=== PATIENT | male | born 1965 | race Caucasian/White ===

== ENCOUNTER 2017-06-04 18:03 | Observation (INO) ==
[2017-06-04] MEDS ORDERED: LORazepam 2 MG/1 ML VIAL ONE (18:13)
[2017-06-04] MEDS ORDERED: LORazepam 2 MG/1 ML VIAL IV STA ×2 (18:14→18:44)
[2017-06-04] MEDS ORDERED: DIPH/TET/ACEL PERT BOOSTER VACCINE 0.5 ML VIAL IM ONE ×2 (18:14→18:18)
[2017-06-04] MEDS ORDERED: ceFAZolin 1,000 MG VIAL ONE (18:18)
[2017-06-04 18:25] LABS: Basophils % 0.4 % (0.0-0.8); Eosinophils # 0.1 10*3/uL (0.0-0.87); Hematocrit 39.3 VOL% (42.0-52.0); Hemoglobin 13.6 GM/DL (14.0-18.0); Immature Granulocytes % 0.4 %; Immature Granulocytes Absolute 0.04 #; Lymphocytes # 1.3 10*3/uL (1.4-4.0); Lymphocytes % 14.6 % (21.2-54.2); Mean Corpuscular HGB Conc 34.6 GM/DL (32-36); Mean Corpuscular Hemoglobin 30 PG (27-34); Mean Corpuscular Volume 87.9 FL (87-102); Mean Platelet Volume 9.6 FL (9.6-12.0); Monocytes # 0.6 10*3/uL (0.11-0.8); Monocytes % 7.1 % (1.7-12.7); Neutrophils # 6.9 10*3/uL (1.4-7.4); Neutrophils % 76.5 % (38.7-73.9); Platelet Count 322 T/CUMM (130-400); Red Blood Count 4.47 MC/CUMM (3.8-5.5)
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
[2017-06-04 18:41] LABS: INR 1.1; PT Patient Result 11.7 SECS
[2017-06-04 18:46] LABS: Alanine Aminotransferase 18 U/L (16-61); Alkaline Phosphatase 96 U/L (45-117); Amylase 27 U/L (25-115); Aspartate Amino Transferase 13 U/L (0-37); Blood Urea Nitrogen 17 MG/DL (7-18); Calcium 9.8 MG/DL (8.5-10.1); Glucose 118 MG/DL (74-106); Osmolality,Calculated 283.3 MOS/KG (273-304); Potassium 3.7 MMOL/L (3.5-5.1); Sodium 141 MMOL/L (136-145); Total Protein 7.3 G/DL (6.4-8.3)
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
[2017-06-04] MEDS ORDERED: ONDANSETRON 4 MG/2 ML VIAL IV PRN (20:33)
[2017-06-04] MEDS ORDERED: ACETAMINOPHEN 325 MG TABLET PO PRN (20:33)
[2017-06-04] MEDS ORDERED: MORPHINE 2 MG/1 ML SYRINGE IV PRN (20:33)
[2017-06-04] MEDS: LACTATED RINGERS 1,000 ML IV SCH ×2 (21:10→21:21)
[2017-06-04] MEDS: clonazePAM 0.5 MG TABLET PO SCH (21:20)
[2017-06-04] MEDS: LITHIUM 300 MG CAPSULE PO SCH (21:20)
[2017-06-04] MEDS: QUEtiapine 100 MG TABLET PO SCH (21:21)
[2017-06-04] MEDS: BENZTROPINE 1 MG TABLET PO SCH (21:21)
[2017-06-05] MEDS: LACTATED RINGERS 1,000 ML IV SCH (04:15)
[2017-06-05] MEDS ORDERED: LEVOTHYROXINE 50 MCG TABLET PO SCH (07:00)
[2017-06-05 08:56] LABS: Basophils % 0.4 % (0.0-0.8); Eosinophils # 0.1 10*3/uL (0.0-0.87); Eosinophils % 1.8 % (0.00-10.9); Hematocrit 39.1 VOL% (42.0-52.0); Hemoglobin 13.1 GM/DL (14.0-18.0); Immature Granulocytes % 0.4 %; Immature Granulocytes Absolute 0.03 #; Lymphocytes # 1.1 10*3/uL (1.4-4.0); Lymphocytes % 14.4 % (21.2-54.2); Mean Corpuscular HGB Conc 33.5 GM/DL (32-36); Mean Corpuscular Hemoglobin 30 PG (27-34); Mean Corpuscular Volume 89.5 FL (87-102); Mean Platelet Volume 9.4 FL (9.6-12.0); Monocytes # 0.7 10*3/uL (0.11-0.8); Monocytes % 8.5 % (1.7-12.7); Neutrophils # 5.9 10*3/uL (1.4-7.4); Neutrophils % 74.5 % (38.7-73.9); Platelet Count 308 T/CUMM (130-400); Red Blood Count 4.37 MC/CUMM (3.8-5.5); Red Cell Distribution Width 12.9 % (9.3-17.3); White Blood Count 7.9 T/CUMM (4-12)
[2017-06-05 09:00] LABS: Calcium 9.1 MG/DL (8.5-10.1); Magnesium 2.6 MG/DL (1.8-2.4); Osmolality,Calculated 281.3 MOS/KG (273-304); Potassium 4.3 MMOL/L (3.5-5.1)
[2017-06-05] MEDS ORDERED: PANTOPRAZOLE 40 MG TABLET PO SCH (09:00)
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
[2017-06-05] MEDS: clonazePAM 0.5 MG TABLET PO SCH (09:12)
[2017-06-05] MEDS: QUEtiapine 100 MG TABLET PO SCH (09:12)
[2017-06-05] MEDS: BENZTROPINE 1 MG TABLET PO SCH (09:13)
[2017-06-05] MEDS: LITHIUM 300 MG CAPSULE PO SCH (09:13)
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
[2017-06-05 11:38] VITALS: BP 104/63
[2017-06-05] MEDS ORDERED: ENOXAPARIN 40 MG/0.4 ML SYRINGE SUBCUT SCH (13:00)
== END 2017-06-05 11:34 ==
LOC: EDBD → EDUNIT# → N.ED 18:03 → N.EDINP 18:03 → N.CC 20:25
PROVIDERS: ADMIT Surgery; ATTEND Surgery

== ENCOUNTER 2017-08-16 22:15 | Inpatient (IN) ==
[2017-08-16] MEDS ORDERED: ceFAZolin 2,000 MG in PREMIX 1 EACH IV ONE (22:30)
[2017-08-16] MEDS ORDERED: ONDANSETRON 4 MG/2 ML VIAL IV PRN (22:31)
[2017-08-16] MEDS ORDERED: ACETAMINOPHEN 325 MG TABLET PO PRN (22:31)
[2017-08-16] MEDS ORDERED: HYDROmorphone 2 MG/1 ML VIAL IV PRN (22:31)
[2017-08-16 22:43] LABS: Basophils % 0.6 % (0.0-0.8); Eosinophils # 0.2 10*3/uL (0.0-0.87); Eosinophils % 2.4 % (0.00-10.9); Hemoglobin 12.9 GM/DL (14.0-18.0); Immature Granulocytes % 0.2 %; Immature Granulocytes Absolute 0.01 #; Lymphocytes # 1.8 10*3/uL (1.4-4.0); Lymphocytes % 28.8 % (21.2-54.2); Mean Corpuscular HGB Conc 33.9 GM/DL (32-36); Mean Corpuscular Hemoglobin 30 PG (27-34); Mean Corpuscular Volume 89.2 FL (87-102); Mean Platelet Volume 9.8 FL (9.6-12.0); Monocytes # 0.5 10*3/uL (0.11-0.8); Monocytes % 8.7 % (1.7-12.7); Neutrophils # 3.7 10*3/uL (1.4-7.4); Neutrophils % 59.3 % (38.7-73.9); Platelet Count 275 T/CUMM (130-400); Red Blood Count 4.26 MC/CUMM (3.8-5.5); Red Cell Distribution Width 13.6 % (9.3-17.3); White Blood Count 6.2 T/CUMM (4-12)
[2017-08-16] MEDS ORDERED: ceFAZolin 1,000 MG VIAL ONE (22:43)
[2017-08-16 22:50] LABS: INR 1.1; PT Patient Result 11.8 SECS; Partial Thromboplastin Time 25.9 SECS (0-40)
[2017-08-16 22:55] LABS: Lactic Acid 2.9 MMOL/L (0.4-2.0)
[2017-08-16 22:56] LABS: Alanine Aminotransferase 17 U/L (16-61); Alkaline Phosphatase 52 U/L (45-117); Amylase 25 U/L (25-115); Aspartate Amino Transferase 17 U/L (0-37); Blood Urea Nitrogen 12 MG/DL (7-18); Calcium 9.2 MG/DL (8.5-10.1); Glucose 118 MG/DL (74-106); Osmolality,Calculated 279.4 MOS/KG (273-304); Potassium 4.1 MMOL/L (3.5-5.1); Sodium 140 MMOL/L (136-145); Total Protein 6.4 G/DL (6.4-8.3)
[2017-08-17] MEDS ORDERED: BACITRACIN OINT 0.9 GM PACK TOP ONE (00:01)
[2017-08-17] MEDS ORDERED: GLUCAGON 1 MG VIAL IM PRN (00:06)
[2017-08-17] MEDS ORDERED: DEXTROSE 50% 25 GM/50 ML VIAL IV PRN (00:06)
[2017-08-17] MEDS ORDERED: SEVOFLURANE 1 UNIT/15 MINUTE INH ONE (00:27)
[2017-08-17] MEDS ORDERED: PROPOFOL 200 MG/20 ML VIAL IV ONE (00:27)
[2017-08-17] MEDS ORDERED: MIDAZOLAM 2 MG/2 ML VIAL ONE (00:27)
[2017-08-17] MEDS ORDERED: fentaNYL 100 MCG/2 ML VIAL ONE (00:27)
[2017-08-17] MEDS ORDERED: ONDANSETRON 4 MG/2 ML VIAL ONE (00:28)
[2017-08-17] MEDS ORDERED: GLYCOPYRROLATE 0.4 MG/2 ML VIAL ONE (00:28)
[2017-08-17] MEDS ORDERED: SUCCINYLCHOLINE 200 MG/10 ML VIAL ONE (00:28)
[2017-08-17] MEDS ORDERED: ROCURONIUM 100 MG/10 ML VIAL IV ONE (00:28)
[2017-08-17] MEDS ORDERED: NEOSTIGMINE 10 MG/10 ML VIAL ONE (00:28)
[2017-08-17] MEDS: LACTATED RINGERS 1,000 ML IV SCH ×3 (01:16→17:46)
[2017-08-17] MEDS: KETOROLAC 15 MG/1 ML VIAL IV SCH ×4 (01:19→18:31)
[2017-08-17 03:24] LABS: Barbiturates Screen,Urine Negative (Negative); Benzodiazepines Screen,Urine Positive (Negative); Cannabinoid Screen,Urine Negative (Negative); Opiate Screen,Urine Negative (Negative); Phencyclidine Screen,Urine Negative (Negative)
[2017-08-17 03:28] LABS: Apearance,Urine CLEAR (Clear); Bilirubin,Urine Negative (Negative); Blood, Urine Large mg/dL (Negative); Glucose,Urine (UA) Negative (Negative); Ketones,Urine Negative (Negative); Nitrite,Urine Negative (Negative); Protein,Urine Negative; RBC,Urine 1436 /HPF (0-4); Urine Color Red (Yellow); Urine Urobilinogen < 2.0 EU/DL (0.2-1.0); WBC,Urine 7 /HPF (0-6)
[2017-08-17] MEDS: ceFAZolin 2,000 MG in PREMIX 1 EACH IV SCH ×3 (06:18→23:06)
[2017-08-17] MEDS: LEVOTHYROXINE 50 MCG TABLET PO SCH (06:19)
[2017-08-17] MEDS: traZODone 50 MG TABLET PO SCH ×2 (09:04→23:16)
[2017-08-17] MEDS: BENZTROPINE 1 MG TABLET PO SCH ×2 (09:04→23:16)
[2017-08-17] MEDS: clonazePAM 0.5 MG TABLET PO SCH ×3 (09:06→23:18)
[2017-08-17] MEDS: LITHIUM 300 MG CAPSULE PO SCH ×3 (09:07→23:19)
[2017-08-17] MEDS: QUEtiapine 100 MG TABLET PO SCH ×3 (09:07→23:19)
[2017-08-17] MEDS: PANTOPRAZOLE 40 MG VIAL IV SCH (09:08)
[2017-08-17 09:15] LABS: Basophils % 0.5 % (0.0-0.8); Eosinophils # 0.2 10*3/uL (0.0-0.87); Eosinophils % 2.4 % (0.00-10.9); Hematocrit 38.7 VOL% (42.0-52.0); Hemoglobin 12.9 GM/DL (14.0-18.0); Immature Granulocytes % 0.3 %; Immature Granulocytes Absolute 0.02 #; Lymphocytes # 1.8 10*3/uL (1.4-4.0); Lymphocytes % 29.1 % (21.2-54.2); Mean Corpuscular HGB Conc 33.3 GM/DL (32-36); Mean Corpuscular Hemoglobin 30 PG (27-34); Mean Corpuscular Volume 91.1 FL (87-102); Monocytes # 0.6 10*3/uL (0.11-0.8); Monocytes % 9.1 % (1.7-12.7); Neutrophils # 3.7 10*3/uL (1.4-7.4); Neutrophils % 58.6 % (38.7-73.9); Platelet Count 265 T/CUMM (130-400); Red Blood Count 4.25 MC/CUMM (3.8-5.5); Red Cell Distribution Width 13.8 % (9.3-17.3); White Blood Count 6.3 T/CUMM (4-12)
[2017-08-17] MEDS: HALOPERIDOL 5 MG TABLET PO SCH ×2 (09:22→23:17)
[2017-08-17 09:28] LABS: Albumin 3.4 G/DL (3.4-5.0); Bilirubin,Total 0.6 MG/DL (0.2-1.0); Calcium 8.5 MG/DL (8.5-10.1); Osmolality,Calculated 277.4 MOS/KG (273-304); Potassium 4.5 MMOL/L (3.5-5.1); Total Protein 5.9 G/DL (6.4-8.3)
[2017-08-17 10:01] LABS: Giant Platelets Few; Hypochromasia 1+; Ovalocytes Slight; Platelet Estimate Adequate
[2017-08-17] MEDS: INSULIN REGULAR 100 UNIT/ML SUBCUT SCH ×4 (12:45→21:22)
[2017-08-18] MEDS: LACTATED RINGERS 1,000 ML IV SCH ×4 (01:13→19:25)
[2017-08-18] MEDS: KETOROLAC 15 MG/1 ML VIAL IV SCH ×4 (01:14→21:14)
[2017-08-18] MEDS: BENZTROPINE 1 MG TABLET PO SCH ×3 (02:00→21:14)
[2017-08-18] MEDS: traZODone 50 MG TABLET PO SCH ×3 (02:01→21:13)
[2017-08-18] MEDS: LITHIUM 300 MG CAPSULE PO SCH ×4 (02:01→21:14)
[2017-08-18] MEDS: QUEtiapine 100 MG TABLET PO SCH ×4 (02:01→21:14)
[2017-08-18] MEDS: clonazePAM 0.5 MG TABLET PO SCH ×4 (02:02→21:14)
[2017-08-18 04:06] LABS: Basophils % 0.3 % (0.0-0.8); Eosinophils # 0.1 10*3/uL (0.0-0.87); Hematocrit 35.8 VOL% (42.0-52.0); Hemoglobin 11.9 GM/DL (14.0-18.0); Immature Granulocytes % 0.3 %; Immature Granulocytes Absolute 0.03 #; Lymphocytes # 1.9 10*3/uL (1.4-4.0); Lymphocytes % 21.2 % (21.2-54.2); Mean Corpuscular HGB Conc 33.2 GM/DL (32-36); Mean Corpuscular Hemoglobin 30 PG (27-34); Mean Corpuscular Volume 90.2 FL (87-102); Monocytes # 0.6 10*3/uL (0.11-0.8); Neutrophils # 6.2 10*3/uL (1.4-7.4); Neutrophils % 70.2 % (38.7-73.9); Platelet Count 221 T/CUMM (130-400); Red Blood Count 3.97 MC/CUMM (3.8-5.5); Red Cell Distribution Width 13.9 % (9.3-17.3); White Blood Count 8.9 T/CUMM (4-12)
[2017-08-18 05:09] LABS: Albumin 2.7 G/DL (3.4-5.0); Bilirubin,Total 0.8 MG/DL (0.2-1.0); Calcium 8.4 MG/DL (8.5-10.1); Potassium 3.8 MMOL/L (3.5-5.1); Total Protein 4.9 G/DL (6.4-8.3)
[2017-08-18] MEDS: ceFAZolin 2,000 MG in PREMIX 1 EACH IV SCH ×2 (05:43→20:38)
[2017-08-18] MEDS: LEVOTHYROXINE 50 MCG TABLET PO SCH (06:49)
[2017-08-18] MEDS: PANTOPRAZOLE 40 MG VIAL IV SCH (09:20)
[2017-08-18] MEDS: HALOPERIDOL 5 MG TABLET PO SCH ×2 (09:21→21:13)
[2017-08-18] MEDS: INSULIN REGULAR 100 UNIT/ML SUBCUT SCH ×4 (09:22→22:29)
[2017-08-19] MEDS: KETOROLAC 15 MG/1 ML VIAL IV SCH ×3 (00:19→11:33)
[2017-08-19] MEDS: LACTATED RINGERS 1,000 ML IV SCH ×3 (03:28→15:21)
[2017-08-19] MEDS: LEVOTHYROXINE 50 MCG TABLET PO SCH (06:09)
[2017-08-19] MEDS: INSULIN REGULAR 100 UNIT/ML SUBCUT SCH ×2 (07:28→11:26)
[2017-08-19] MEDS: clonazePAM 0.5 MG TABLET PO SCH ×2 (08:22→15:30)
[2017-08-19] MEDS: PANTOPRAZOLE 40 MG VIAL IV SCH (08:22)
[2017-08-19] MEDS: HALOPERIDOL 5 MG TABLET PO SCH (08:22)
[2017-08-19] MEDS: traZODone 50 MG TABLET PO SCH (08:22)
[2017-08-19] MEDS: BENZTROPINE 1 MG TABLET PO SCH (08:23)
[2017-08-19] MEDS: QUEtiapine 100 MG TABLET PO SCH ×2 (08:23→15:30)
[2017-08-19] MEDS: LITHIUM 300 MG CAPSULE PO SCH ×2 (15:03→15:20)
[2017-08-19 16:05] VITALS: BP 121/57
== END 2017-08-19 15:45 | DRG 572 ==
LOC: EDUNIT# → EDBD → N.ED 22:15 → N.EDINP 22:31 → N.CVR 23:03 → N.ICU 08-17 16:14 → N.3E 08-18 14:47
PROVIDERS: ADMIT Specialist; ATTEND Specialist

== ENCOUNTER 2018-08-25 10:39 | Observation (INO) ==
[2018-08-25 11:53] LABS: Allen Test Positive; Pt O2 Delivery Device Room Air
[2018-08-25 11:54] LABS: ABG Base Excess -1.6 MMOL/L (-2.5-2.5); ABG Oxygen Saturation 96.4 % (95-100); ABG PCO2 36.2 MM HG (35-48); ABG PH 7.403 (7.35-7.45); ABG PO2 83.9 MM HG (80-95); ABG TCO2 19.4 MMOL/L (23-27)
[2018-08-25 12:26] LABS: Apearance,Urine CLEAR (Clear); Bacteria,Urine Occasional /HPF (Few); Bilirubin,Urine Negative (Negative); Blood, Urine Negative (Negative); Glucose,Urine (UA) Negative (Negative); Ketones,Urine 5 mg/dL (Negative); Mucus,Urine Occasional /LPF (Occasional); Nitrite,Urine Negative (Negative); Protein,Urine Negative; RBC,Urine 1 /HPF (0-4); Urine Color Yellow (Yellow); Urine Specific Gravity 1.014 (1.001-1.035); Urine Urobilinogen < 2.0 EU/DL (0.2-1.0); WBC,Urine 1 /HPF (0-6)
[2018-08-25 12:39] LABS: Barbiturates Screen,Urine Negative (Negative); Benzodiazepines Screen,Urine Negative (Negative); Cannabinoid Screen,Urine Negative (Negative); Opiate Screen,Urine Negative (Negative); Phencyclidine Screen,Urine Negative (Negative)
[2018-08-25 13:10] LABS: Basophils % 0.6 % (0.0-0.8); Eosinophils # 0.1 10*3/uL (0.0-0.87); Eosinophils % 0.7 % (0.00-10.9); Hematocrit 42.7 VOL% (42.0-52.0); Hemoglobin 14.2 GM/DL (14.0-18.0); Immature Granulocytes % 0.3 %; Immature Granulocytes Absolute 0.02 #; Lymphocytes # 1.6 10*3/uL (1.4-4.0); Lymphocytes % 22.8 % (21.2-54.2); Mean Corpuscular HGB Conc 33.3 GM/DL (32-36); Mean Corpuscular Hemoglobin 30 PG (27-34); Mean Corpuscular Volume 91.4 FL (87-102); Mean Platelet Volume 9.6 FL (9.6-12.0); Monocytes # 0.9 10*3/uL (0.11-0.8); Monocytes % 13.2 % (1.7-12.7); Neutrophils # 4.5 10*3/uL (1.4-7.4); Neutrophils % 62.4 % (38.7-73.9); Platelet Count 255 T/CUMM (130-400); Red Blood Count 4.67 MC/CUMM (3.8-5.5); Red Cell Distribution Width 13.2 % (9.3-17.3); White Blood Count 7.1 T/CUMM (4-12)
[2018-08-25 13:29] LABS: PT Patient Result 10.9 SECS; Partial Thromboplastin Time 27.1 SECS (0-40)
[2018-08-25 13:31] LABS: Ammonia 24 UMOL/L (11-32)
[2018-08-25 13:42] LABS: Alanine Aminotransferase 49 U/L (16-61); Albumin 3.9 G/DL (3.4-5.0); Alkaline Phosphatase 78 U/L (45-117); Aspartate Amino Transferase 26 U/L (0-37); Blood Urea Nitrogen 19 MG/DL (7-18); Calcium 8.6 MG/DL (8.5-10.1); Glucose 101 MG/DL (74-106); Osmolality,Calculated 280.4 MOS/KG (273-304); Potassium 4.1 MMOL/L (3.5-5.1); Sodium 140 MMOL/L (136-145); Total Protein 7.7 G/DL (6.4-8.3)
[2018-08-25] MEDS ORDERED: SODIUM CHLORIDE 0.9% 1,000 ML IV STA (14:55)
[2018-08-25] MEDS ORDERED: GLUCAGON 1 MG VIAL IM PRN (15:45)
[2018-08-25] MEDS ORDERED: ONDANSETRON 4 MG/2 ML VIAL IV PRN (15:45)
[2018-08-25] MEDS ORDERED: DEXTROSE 50% 25 GM/50 ML VIAL IV PRN (15:45)
[2018-08-25] MEDS ORDERED: ACETAMINOPHEN 325 MG TABLET PO PRN (15:45)
[2018-08-25] MEDS ORDERED: LORazepam 2 MG/1 ML VIAL IV PRN (15:56)
[2018-08-25] MEDS: ENOXAPARIN 40 MG/0.4 ML SYRINGE SUBCUT SCH (17:00)
[2018-08-25] MEDS: SODIUM CHLORIDE 0.9% 1,000 ML IV SCH (17:01)
[2018-08-25] MEDS ORDERED: HALOPERIDOL 5 MG/ML AMP IV PRN (18:37)
[2018-08-25 19:23] VITALS: BP 153/66
[2018-08-25] MEDS ORDERED: VENLAFAXINE 25 MG PO SCH (21:00)
[2018-08-25] MEDS ORDERED: PRAVASTATIN 20 MG TABLET PO SCH (21:00)
[2018-08-25] MEDS: OXcarbazepine 300 MG TABLET PO SCH (21:53)
[2018-08-26] MEDS ORDERED: LORazepam 2 MG/1 ML VIAL IM ONE (03:15)
[2018-08-26 05:00] LABS: Basophils % 0.5 % (0.0-0.8); Eosinophils # 0.2 10*3/uL (0.0-0.87); Eosinophils % 2.3 % (0.00-10.9); Hemoglobin 12.7 GM/DL (14.0-18.0); Immature Granulocytes % 0.3 %; Immature Granulocytes Absolute 0.02 #; Lymphocytes % 25.3 % (21.2-54.2); Mean Corpuscular HGB Conc 32.6 GM/DL (32-36); Mean Corpuscular Hemoglobin 30 PG (27-34); Mean Corpuscular Volume 92.4 FL (87-102); Mean Platelet Volume 9.8 FL (9.6-12.0); Monocytes # 0.9 10*3/uL (0.11-0.8); Monocytes % 11.9 % (1.7-12.7); Neutrophils # 4.6 10*3/uL (1.4-7.4); Neutrophils % 59.7 % (38.7-73.9); Platelet Count 236 T/CUMM (130-400); Red Blood Count 4.22 MC/CUMM (3.8-5.5); Red Cell Distribution Width 13.2 % (9.3-17.3); White Blood Count 7.7 T/CUMM (4-12)
[2018-08-26 05:26] LABS: Calcium 8.4 MG/DL (8.5-10.1); Potassium 3.7 MMOL/L (3.5-5.1)
[2018-08-26] MEDS ORDERED: LEVOTHYROXINE 75 MCG TABLET PO SCH (06:30)
[2018-08-26] MEDS ORDERED: LEVOTHYROXINE 100 MCG TABLET PO SCH (06:30)
[2018-08-26] MEDS: OXcarbazepine 300 MG TABLET PO SCH (08:23)
[2018-08-26] MEDS: SODIUM CHLORIDE 0.9% 1,000 ML IV SCH (08:35)
[2018-08-26] MEDS ORDERED: VENLAFAXINE 37.5 MG TABLET PO SCH (09:00)
[2018-08-26] MEDS ORDERED: PANTOPRAZOLE 40 MG TABLET PO SCH (09:00)
[2018-08-26] MEDS ORDERED: OLANZapine 5 MG TABLET PO SCH ×2 (09:00→21:00)
[2018-08-26] MEDS: ENOXAPARIN 40 MG/0.4 ML SYRINGE SUBCUT SCH (15:34)
== END 2018-08-26 16:15 ==
LOC: N.EDINP 10:39 → N.ED 10:39 → SUATTDRO 15:24 → N.CC 16:17
PROVIDERS: ADMIT Internal Medicine; ATTEND Internal Medicine